=== PATIENT | male | born 1990 | race Two or more races ===

== ENCOUNTER 2021-12-10 11:39 | Emergency (ER) | payer BC ==
[~2021-12-10] VITALS: Ht 175.3 cm; Wt 113.4 kg
--- NOTE | 2021-12-10 11:50 | NUR ---
DR ESPINOZA AT BEDSIDE FOR EVAL
--- NOTE | 2021-12-10 12:10 | NUR ---
IV LINE ESTABLISHED ON RAC #20, BLOOD DRAWN AND SENT TO LAB
--- NOTE | 2021-12-10 12:14 | NUR ---
TECH AT BEDSIDE FOR EKG
[2021-12-10 12:19] LABS: BASOPHILS # (AUTO) 0.1 K/uL (0.0-0.2); BASOPHILS % (AUTO) 1.1 % (0.0-2.0); EOSINOPHILS % (AUTO) 4.3 % (0.0-6.0); HEMATOCRIT 47 % (39-51); HEMOGLOBIN 15.3 g/dL (13.5-17.5); LYMPHOCYTES # (AUTO) 2.2 K/uL (0.8-4.8); LYMPHOCYTES % (AUTO) 41.2 % (20.0-44.0); MEAN CORPUSCULAR HGB CONC 33 g/dl (31.0-36.0); MEAN CORPUSCULAR VOLUME 90 fL (80-96); MONOCYTES # (AUTO) 0.5 K/uL (0.1-1.30); MONOCYTES % (AUTO) 9.6 % (2.0-12.0); NEUTROPHILS # (AUTO) 2.4 K/uL (1.8-8.9); NEUTROPHILS % (AUTO) 43.8 % (43.0-81.0); PLATELET COUNT (AUTO) 285 K/uL (150-450); RED BLOOD CELL COUNT(AUTO) 5.23 MIL/uL (4.5-6.0); WHITE BLOOD COUNT (AUTO) 5.4 K/uL (4.3-11.0)
[2021-12-10] MEDS ORDERED: IOHEXOL-350 100 ML VIAL IV ONE (12:28)
[2021-12-10] MEDS ORDERED: IV NS 0.9% 250 ML IV ONE (12:29)
--- NOTE | 2021-12-10 12:29 | NUR ---
PER DR. ESPINOZA, JEFFERY FOR PT TO HAVE BENADRYL AND ZOFRAN PRIOR TO CT ANGIO
[2021-12-10] MEDS ORDERED: ONDANSETRON HCL/PF - ER 4 MG/2 ML VIAL IV ONE (12:30)
[2021-12-10] MEDS ORDERED: diphenhydrAMINE HCL 50 MG/ML VIAL IV ONE (12:30)
[2021-12-10] MEDS ORDERED: diphenhydrAMINE HCL 50 MG/ML VIAL ONE (12:31)
[2021-12-10] MEDS ORDERED: ONDANSETRON HCL/PF 4 MG/2 ML VIAL ONE (12:31)
--- NOTE | 2021-12-10 12:44 | NUR ---
PT TAKEN TO RADIOLOGY FOR CT ANGIO
[2021-12-10 12:46] LABS: CALCIUM, SERUM 9.2 mg/dL (8.5-10.1); CARBON DIOXIDE 29 mmol/L (21-32); CHLORIDE 105 mmol/L (98-107); CREATININE 1.3 mg/dL (0.6-1.3); GLUCOSE 128 mg/dL (74-106); SODIUM SERUM 139 mmol/L (136-145); UREA NITROGEN, BLOOD 18 mg/dL (7-18)
[2021-12-10 12:52] LABS: ALANINE AMINOTRANSFERASE 55 U/L (12-78); ALBUMIN 3.7 g/dL (3.4-5.0); ALKALINE PHOSPHATASE 95 U/L (46-116); ASPARTATE AMINOTRANSFERASE 30 U/L (15-37); BILIRUBIN,DIRECT 0.1 mg/dL (0.0-0.2); BILIRUBIN,TOTAL 0.4 mg/dL (0.2-1.0); TOTAL PROTEIN, SERUM 7.4 g/dL (6.4-8.2)
--- NOTE | 2021-12-10 13:18 | NUR ---
PT RETURNED FROM RADIOLOGY
--- NOTE | 2021-12-10 14:00 | NUR ---
IV removed. Catheter intact and site benign. Pressure and 4x4 applied to site. No bleeding noted.
[2021-12-10 14:05] VITALS: BP 137/86
--- NOTE | 2021-12-10 14:05 | NUR ---
Patient discharged to home in stable condition. Written and verbal after care instructions given. Patient verbalizes understanding of instruction.
== END 2021-12-10 14:06 | disposition home or self-care (01) ==
LOC: ER 11:47
DX: R06.00 Dyspnea, unspecified (principal); Z86.16 Personal history of COVID-19; Z90.49 Acquired absence of other specified parts of digestive tract; Z88.0 Allergy status to penicillin
CPT/HCPCS: 99285; 96374; 71275; 96375; 93005 ×2; 85025; 80048; 80076; 36415; 84484; 85730; J1200; J2405; J7050; Q9967